=== PATIENT | female | born 1965 | race Caucasian/White ===

== ENCOUNTER 2017-01-24 11:08 | Emergency (ER) | payer MEDICAID ==
[2017-01-24 11:22] VITALS: BMI 30.1
[2017-01-24] MEDS ORDERED: Sodium Chloride 0.9% 1,000 ML IV ONE (11:24)
[2017-01-24 11:26] VITALS: O2SAT 98
--- NOTE | 2017-01-24 11:32 | C.PDOC ---
History Of Present Illness 51 y/o female presents to ED with complaints of dizziness, vomiting and x3 episode of epistaxis since yesterday. Patient states she was given psych medication in [place] 2 months ago and is not compliant. Today patient reports symptoms worsen which prompted visit to ED and denies fever, chills, abdominal pain, back pain, urinary symptoms or any other complaints at this time. Time Seen by Provider: 01/24/17 11:11 Chief Complaint (Nursing): Dizziness/Lightheaded History Per: Patient History/Exam Limitations: no limitations Onset/Duration Of Symptoms: Days Current Symptoms Are (Timing): Still Present Past Medical History Reviewed: Historical Data, Nursing Documentation, Vital Signs Vital Signs: Last Vital Signs Temp 98.8 F 01/24/17 14:08 Pulse 75 01/24/17 14:08 Resp 16 01/24/17 14:08 BP 102/62 01/24/17 14:08 Pulse Ox 98 01/24/17 14:08 - Medical History PMH: Bipolar Disorder, Depression, Hypothyroidism Surgical History: No Surg Hx Family History: States: No Known Family Hx - Social History Hx Alcohol Use: No Hx Substance Use: No Review Of Systems Constitutional: Negative for: Fever, Chills Eyes: Negative for: Vision Change Gastrointestinal: Positive for: Nausea, Vomiting. Negative for: Abdominal Pain , Diarrhea Genitourinary: Negative for: Dysuria, Frequency, Hematuria Musculoskeletal: Negative for: Back Pain Skin: Negative for: Rash Neurological: Positive for: Dizziness Physical Exam - Physical Exam Appears: Non-toxic Skin: Normal Color, Warm, Dry, No Rash Head: Atraumatic, Normacephalic Eye(s): bilateral: Normal Inspection Oral Mucosa: Moist Neck: Normal ROM, Supple Chest: Symmetrical Cardiovascular: Rhythm Regular, No Murmur Respiratory: Normal Breath Sounds, No Rales, No Rhonchi, No Wheezing Gastrointestinal/Abdominal: Soft, No Tenderness, No Guarding, No Rebound Extremity: Normal ROM, Capillary Refill (<2 seconds) Neurological/Psych: Oriented x3, Normal Speech, Normal Cognition, Normal Motor, Normal Sensation ED Course And Treatment - Laboratory Results Result Diagrams: 01/24/17 11:45 01/24/17 11:45 Lab Interpretation: Normal ECG: Interpreted By Me ECG Rhythm: Sinus Rhythm ECG Interpretation: Normal Rate From EC O2 Sat by Pulse Oximetry: 98 (RA) Pulse Ox Interpretation: Normal Progress Note: Treated with IVF NSS and reglan. Patient in bed texting and talking on the phone in no distress. No nasal bleeding noted. On re- evaluation neuro intact, ambulating with steady gait Medical Decision Making Medical Decision Making: Plan: * iv fluids * blood work * UA * crisis evaluation Disposition Counseled Patient/Family Regarding: Studies Performed, Diagnosis, Need For Followup - Disposition Referrals: [facility] [Outside] [facility] [Outside] Disposition: HOME/ ROUTINE Disposition Time: 14:35 Condition: STABLE Additional Instructions: Return to ED if any increase symptoms Follow up with outpatient services for further evaluation Instructions: Dizziness (ED) Forms: [employer] (Gambian) Print Language: [place] - POA Present On Arrival: None - Clinical Impression Clinical Impression: Dizziness, Epistaxis - PA / LAY MIDWIFE / Resident Statement MD/DO has reviewed & agrees with the documentation as recorded. - Scribe Statement The provider has reviewed the documentation as recorded by the Elzbietaibterry Barker All medical record entries made by the Karthik were at my direction and personally dictated by me. I have reviewed the chart and agree that the record accurately reflects my personal performance of the history, physical exam, medical decision making, and the department course for this patient. I have also personally directed, reviewed, and agree with the discharge instructions and disposition.
[2017-01-24] MEDS ORDERED: Sodium Chloride 0.9% 1,000 ML ONE (11:34)
[2017-01-24 11:50] LABS: BASO % 0.2 % (0.0-2.0); EOS # 0.1 K/uL (0.0-0.7); EOS % 2.3 % (0.0-4.0); HEMATOCRIT 42.6 % (34.0-47.0); LYMPH # 1.9 K/uL (1.0-4.3); LYMPH % 29.7 % (20.0-40.0); MEAN CELL VOLUME 90.1 fL (81.0-99.0); MEAN CORPUSCULAR HEMOGLOBIN 30.2 pg (27.0-31.0); MEAN CORPUSCULAR HGB CONC 33.5 g/dL (33.0-37.0); MEAN PLATELET VOLUME 8.2 fL (7.2-11.7); MONO # 0.3 K/uL (0.0-0.8); MONO % 5.3 % (0.0-10.0); NRBC % 0.1 % (0.0-2.0); RED CELL DISTRIBUTION WIDTH 13.7 % (11.5-14.5); WHITE BLOOD COUNT 6.4 K/uL (4.8-10.8)
[2017-01-24 11:55] LABS: RBC URINE 1 /hpf (0-3); URINE BACTERIA RARE (<OCC); URINE BILIRUBIN NEGATIVE (NEGATIVE); URINE BLOOD NEGATIVE (NEGATIVE); URINE COLOR Yellow (YELLOW); URINE GLUCOSE (UA) NORMAL (Normal); URINE KETONE NEGATIVE (NEGATIVE); URINE LEUKOCYTE ESTERASE NEG Leu/uL (Negative); URINE PROTEIN NEGATIVE (NEGATIVE); URINE UROBILINOGEN NORMAL mg/dL (0.2-1.0); WBC URINE 1 /hpf (0-5)
[2017-01-24 12:01] LABS: ALB/GLOB RATIO 1.2 (1.0-2.1); ALCOHOL SERUM < 10 mg/dl (0-10); ALKALINE PHOSPHATASE 56 U/L (38-126); ALT/SGPT 26 U/L (9-52); AST/SGOT 23 U/L (14-36); BILIRUBIN,TOTAL 0.6 mg/dL (0.2-1.3); BLOOD UREA NITROGEN 11 mg/dL (7-17); CALCIUM 9.3 mg/dl (8.6-10.4); CARBON DIOXIDE 30 mmol/L (22-30); CHLORIDE 98 mmol/L (98-107); GFR AFRICAN-AMERICAN > 60; GLUCOSE,RANDOM 51 mg/dL (65-105); POTASSIUM 3.9 mmol/L (3.6-5.2); SODIUM 143 mmol/L (132-148); TOTAL PROTEIN 7.6 g/dL (6.3-8.3)
[2017-01-24 14:09] VITALS: BP 102/62; PULSE 75; RESP 16; TEMP 98.8
--- NOTE | 2017-01-25 12:35 | CARD ---
APPROVED REPORT EKG Measurement Heart [id number] [place] [id number] <Conclusion> Normal sinus rhythm Normal ECG
== END 2017-01-24 14:51 | disposition home or self-care (01) ==
LOC: C.ER 11:08
DX: R42 Dizziness and giddiness (principal); R04.0 Epistaxis
CPT/HCPCS: 80053; 80320; 80324; 80345; 80346; 80349; 80353; 80358; 80361; 81001; 83992; 85025; 93005; 96361; 96374; 99285; J2405; J7040